=== PATIENT | female | born 1990 | race Caucasian/White ===

== ENCOUNTER 2022-12-27 14:00 | Emergency (ER) | payer OTHER, MEDICAID, SELFPAY ==
[2022-12-27 14:12] VITALS: BP 140/89; PULSE 79; RESP 20; TEMP 37.2; O2SAT 99; BMI 40.8
--- NOTE | 2022-12-27 14:16 | DI.RAD.S_ITS ---
PROCEDURE: XR RIBS LT MIN 3V W CXR1V INDICATIONS: fall/increased pain/recent fracture on left 07/22 TECHNIQUE: 3 views of the left ribs were acquired, along with a single view chest. COMPARISON: None. FINDINGS: Surgical changes and devices: None. Bones and chest wall: No fractures or dislocations. No suspicious bony lesions. Overlying soft tissues appear unremarkable. Lungs and pleura: No pleural effusions or pneumothorax. Lungs appear clear. Mediastinum: Mediastinal contours appear normal. Heart size is normal. IMPRESSION: No visualized acute fracture or dislocation. However, if clinical concern and/or pain persist, short interval imaging followup in 7-10 days is recommended, as occult injury cannot be definitively excluded. Dictated by: Cherelle Aguirre M.D. on 12/27/2022 at 15:23 Approved by: Cherelle Aguirre M.D. on 12/27/2022 at 15:24
--- NOTE | 2022-12-27 16:24 | ED_ITS ---
HPI - Chest Pain <Heather Almazan PA-C - Last Filed: 12/27/22 16:47> General Chief Complaint: Chest Pain Stated Complaint: LT side & chest pain/HX of falling T-14 and today Time Seen by Provider: 12/27/22 16:18 Source: patient Mode of arrival: Ambulatory Limitations: no limitations History of Present Illness HPI narrative: Patient is a 32-year-old female who presents with left-sided chest pain after a fall. She reports breaking two ribs, left 5 -6, 2 weeks ago. She was seen at a facility on [facility] and diagnosed with rib fractures and given pain medications. Today she was feeling a bit better and [place] other when she slipped and fell onto her left side. She immediately experienced excruciating pain and presented to the emergency room. She last took ibuprofen this morning. Related Data Home Medications Medication Instructions Recorded Confirmed fluoxetine 10 mg capsule 10 mg PO DAILY 05/01/19 12/03/19 metformin 1,000 mg tablet 1,000 mg PO BID 05/01/19 12/03/19 ondansetron 4 mg disintegrating 4 mg PO Q6H 05/01/19 12/03/19 tablet oxycodone-acetaminophen 5 mg-325 1 tab PO Q4-6H PRN 05/01/19 12/03/19 mg tablet Previous Rx's Medication Instructions Recorded oxycodone 5 mg tablet 5 mg PO Q6H PRN pain #14 tabs 12/27/22 Allergies Allergy/AdvReac Type Severity Reaction Status Date / Time cefaclor [From Ceclor] Allergy Severe SOB Verified 12/27/22 15:37 penicillin V Allergy Severe RASH Verified 12/27/22 15:37 hydrocodone [From Vicodin] Allergy Unknown Verified 12/27/22 16:21 Review of Systems <Heather Almazan PA-C - Last Filed: 12/27/22 16:47> Review of Systems ROS Unobtainable: All systems reviewed & are unremarkable except as noted in HPI and below Patient History <Heather Almazan PA-C - Last Filed: 12/27/22 16:47> Medical History section wound complication Tobacco abuse Morbid obesity Diabetes Social History Smoking Status: Current every day smoker Smoking Status: Current every day smoker Substance Use Type: marijuana Exam <Heather Almazan PA-C - Last Filed: 12/27/22 16:47> Narrative Exam Narrative: GENERAL: 32 year old patient appears stated age. Well-developed patient, in moderate distress. NEURO: AOx3. HEAD: Atraumatic. Normocephalic. EYES: Pupils equal round and reactive. Extraocular motions intact. No scleral icterus. No injection or drainage. ENT: Nose without bleeding or purulent drainage. Airway patent. Poor dentition. NECK: Trachea midline. Non tender CARDIOVASCULAR: Regular rate and rhythm without murmurs, gallops, or rubs. RESPIRATORY: Clear to auscultation. Breath sounds equal bilaterally. No wheezes, rales, or rhonchi. Patient experiences chest wall pain with a deep breath. SKIN: No rash or erythema of visible areas Initial Vital Signs Initial Vital Signs: Vital Signs Temperature 98.9 F 12/27/22 14:12 Pulse Rate 79 12/27/22 14:12 Respiratory Rate 20 12/27/22 14:12 Blood Pressure 140/89 12/27/22 14:12 Pulse Oximetry 99 12/27/22 14:12 Oxygen Delivery Method Room Air 12/27/22 14:12 <Daniel Anderson MD - Last Filed: 12/27/22 18:04> Initial Vital Signs Initial Vital Signs: Vital Signs Temperature 98.9 F 12/27/22 14:12 Pulse Rate 79 12/27/22 14:12 Respiratory Rate 20 12/27/22 14:12 Blood Pressure 140/89 12/27/22 14:12 Pulse Oximetry 99 12/27/22 14:12 Oxygen Delivery Method Room Air 12/27/22 14:12 Course <Heather Almazan PA-C - Last Filed: 12/27/22 16:47> Orders Ordered: ED Orders 12/27/22 14:16 XR ribs LT min 3V w CXR1V Stat Discontinued Medications Ketorolac Tromethamine (Ketorolac 30 Mg/Ml Vial) 30 mg IM NOW ONE Stop: 12/27/22 16:36 Last Admin: 12/27/22 16:45 Dose: 30 mg Documented By: DAVEY Oxycodone/Acetaminophen (Oxycodone/Acetaminophen 5/325 Tablet) 1 tab PO NOW ONE Stop: 12/27/22 16:20 Last Admin: 12/27/22 16:25 Dose: 1 tab Documented By: DAVEY Vital Signs Vital signs: Vital Signs - 8 hr 12/27/22 14:12 12/27/22 16:48 12/27/22 17:03 Temperature 98.9 F Pulse Rate 79 64 Respiratory Rate 20 18 Blood Pressure 140/89 130/81 Pulse Oximetry 99 99 Oxygen Delivery Method Room Air Room Air Room Air Oxygen Flow Rate 0 Fraction of Inspired Oxygen 21 <Daniel Anderson MD - Last Filed: 12/27/22 18:04> Orders Ordered: ED Orders 12/27/22 14:16 XR ribs LT min 3V w CXR1V Stat Discontinued Medications Ketorolac Tromethamine (Ketorolac 30 Mg/Ml Vial) 30 mg IM NOW ONE Stop: 12/27/22 16:36 Last Admin: 12/27/22 16:45 Dose: 30 mg Documented By: DAVEY Oxycodone/Acetaminophen (Oxycodone/Acetaminophen 5/325 Tablet) 1 tab PO NOW ONE Stop: 12/27/22 16:20 Last Admin: 12/27/22 16:25 Dose: 1 tab Documented By: DAVEY Vital Signs Vital signs: Vital Signs - 8 hr 12/27/22 14:12 12/27/22 16:48 12/27/22 17:03 Temperature 98.9 F Pulse Rate 79 64 Respiratory Rate 20 18 Blood Pressure 140/89 130/81 Pulse Oximetry 99 99 Oxygen Delivery Method Room Air Room Air Room Air Oxygen Flow Rate 0 Fraction of Inspired Oxygen 21 MDM - Chest Pain <Heather Almazan PA-C - Last Filed: 12/27/22 16:47> Imaging Data Chest x-ray: Radiologist's Impression: PROCEDURE: XR RIBS LT MIN 3V W CXR1V INDICATIONS: fall/increased pain/recent fracture on left 5/6 TECHNIQUE: 3 views of the left ribs were acquired, along with a single view chest. COMPARISON: None. FINDINGS: Surgical changes and devices: None. Bones and chest wall: No fractures or dislocations. No suspicious bony lesions. Overlying soft tissues appear unremarkable. Lungs and pleura: No pleural effusions or pneumothorax. Lungs appear clear. Mediastinum: Mediastinal contours appear normal. Heart size is normal. IMPRESSION: No visualized acute fracture or dislocation. However, if clinical concern and/or pain persist, short interval imaging followup in 7-10 days is recommended, as occult injury cannot be definitively excluded. Dictated by: Cherelle Aguirre M.D. on 12/27/2022 at 15:23 Approved by: Cherelle Aguirre M.D. on 12/27/2022 at 15:24 [facility] Narrative Medical decision making narrative: Multiple etiologies for patient's symptoms considered including, but not limited to: Fracture, displaced fracture, rib contusion, pulmonary contusion, pneumothorax. No fracture seen on chest x-ray, suspect pain is related to re- injury of previous fractures. No evidence of pneumothorax on x-ray, patient has normal respiratory rate and oxygen saturation on exam and equal bilateral breath sounds. Prescription for oxycodone 5 mg #14 prescribed for pain control. PDMP review shows patient was prescribed #20 5 mg tabs on the 5th and no previous prescriptions for controlled substances.. Discussed appropriate use of this medication to control severe pain in addition to ibuprofen and nonpharmacologic interventions. She was instructed by RN/RT on use of incentive spirometer for home and return precautions were advised. Patient's symptoms improved over duration of stay with above-stated therapies. Findings and discharge diagnosis discussed with patient/family followed by verbalization of understanding Return precautions discussed with patient/family whom verbalize understanding of diagnosis and plan Discharge Plan Departure Patient Disposition: Home Clinical Impression: Contusion of rib on left side Qualifiers: Encounter type: initial encounter Qualified Code(s): S20.212A - Contusion of left front wall of thorax, initial encounter Instructions: DI for Rib Fracture Activity Restrictions/Additional Instructions: *You have been diagnosed with a contusion the left ribs over the site of your previous rib fractures. As we discussed, this can be incredibly painful even though we do not see anything on x-ray today. You can continue taking ibuprofen, although I would limit it to 600mg every 6-8 hours. I will prescribe you some stronger pain medication to be used for severe pain. We will give you an incentive spirometer which is a device to help technology coach you to take deep breaths; I recommend trying to take at least 10 of these every hour to prevent pneumonia. *What to do: *Please continue to take your regular medications as directed. [x] New medication prescriptions sent to your pharmacy: [facility] [ ] New medication written as a paper prescription [ ] No new medications given *Please follow up with your primary care provider in 2-3 days, call for an appointment. Let them know you were seen in the Emergency Department and that we ask that you be seen in follow up. We will electronically transmit a record of today's note if your PCP is in our system *If you do not have a primary care provider please contact the [facility] Resource line at [phone]. They will ask some questions about your medical history and help get you set up with a doctor in the community. *Return to Emergency Department if you should have any new, worsening or concerning symptoms, such as [fever greater than 101 F, shaking chills, worsening pain, persistent vomiting or other concerning symptoms]. Prescriptions: New oxycodone 5 mg tablet 5 mg PO Q6H PRN (Reason: pain) Qty: 14 0RF No Action metformin 1,000 mg tablet 1,000 mg PO BID fluoxetine 10 mg capsule 10 mg PO DAILY ondansetron 4 mg tablet,disintegrating 4 mg PO Q6H oxycodone-acetaminophen 5-325 mg tablet 1 tab PO Q4-6H PRN Referrals: Miscellaneous,[facility] [Primary Care Provider] - Stand Alone Forms: Patient Portal/API ED Sign-out <Daniel Anderson MD - Last Filed: 12/27/22 18:04> Cosign ED Attending Molly Attestation: I was immediately available in the department for consultation. ?This documentation has been reviewed and I agree with assessment and plan. Supervised by Daniel Anderson MD
[2022-12-27] MEDS: OXYCODONE/ACETAMINOPHEN 5/325 TABLET 1 TAB PO (16:25)
[2022-12-27] MEDS: KETOROLAC 30 MG/ML VIAL IM (16:45)
[2022-12-27 17:03] VITALS: BP 130/81; PULSE 64; RESP 18; O2SAT 99
== END 2022-12-27 17:04 | disposition home or self-care (01) ==
PROVIDERS: Emergency Provider Physician Assistant
DX: S20.212A Contusion of left front wall of thorax, initial encounter (principal); W19.XXXA Unspecified fall, initial encounter
CPT/HCPCS: 71101; 96372; 99283; 99284; J1885